=== PATIENT | female | born 1955 | race Caucasian/White ===

== ENCOUNTER 2019-01-13 01:23 | Inpatient (IN) | payer OTHER ==
[~2019-01-13] VITALS: Ht 162.6 cm; Wt 54.5 kg
[2019-01-13] VITALS (51 sets, daily range): BP systolic 120–160; BP diastolic 47–83
[2019-01-13] MEDS ORDERED: OCTREOTIDE 1,000 MCG in SODIUM CHLORIDE 0.9% 100 ML IV STA (01:28)
[2019-01-13] MEDS ORDERED: ONDANSETRON HCL 4MG/2ML INJ IV STA (01:28)
[2019-01-13] MEDS ORDERED: OCTREOTIDE ACETATE 50 MCG/ML 1ML IV STA (01:28)
[2019-01-13] MEDS ORDERED: SODIUM CHLORIDE 0.9% 1,000 ML IV ONE ×2 (01:28→03:28)
[2019-01-13] MEDS ORDERED: PANTOPRAZOLE SODIUM 40 MG/VIAL IV STA (01:28)
[2019-01-13] MEDS ORDERED: CEFTRIAXONE 1 G PREMIX 50 ML IV ONE (01:30)
[2019-01-13 02:02] LABS: BASOPHILS % 1.7 % (0.0-2.0); LYMPHOCYTES % 17.7 % (20.0-50.0); MEAN CORPUSCULAR HEMOGLOBIN 27.7 pg (28.0-32.0); MEAN CORPUSCULAR VOLUME 89.3 fL (81.0-99.0); MEAN PLATELET VOLUME 8.1 fl (7.4-10.4); MONOCYTES % 5.4 % (2.0-8.0); NEUTROPHILS % 75.2 % (40.0-76.0); PLATELET 90 x1000/uL (130-400); RED BLOOD CELL COUNT 2.06 mill/uL (4.2-5.4); RED CELL DISTRIBUTION WIDTH 17.2 % (11.6-14.6)
[2019-01-13 02:06] LABS: HEMATOCRIT. 18.4 % (36.0-48.0); HEMOGLOBIN. 5.7 g/dL (12.0-16.0)
[2019-01-13 02:07] LABS: CHLORIDE 114 mEq/L (98-107)
[2019-01-13 02:11] LABS: ETHANOL BLOOD 160 mg/dL
[2019-01-13 02:12] LABS: INR 1.9; PROTHROMBIN TIME 19.2 sec (9.1-11.1)
[2019-01-13] MEDS ORDERED: MIDAZOLAM HCL 50 MG in DEXTROSE 5% WATER 40 ML IV ONE (02:45)
[2019-01-13] MEDS ORDERED: SODIUM CHLORIDE 0.9% 10ML VIAL ONE (02:45)
[2019-01-13] MEDS ORDERED: MIDAZOLAM HCL 2 MG/2 ML VIAL IV ONE (02:45)
[2019-01-13] MEDS ORDERED: VECURONIUM BROMIDE 10 MG/VIAL IV ONE (02:45)
[2019-01-13] MEDS ORDERED: ONDANSETRON HCL 4MG/2ML INJ ONE (02:46)
[2019-01-13] MEDS ORDERED: MIDAZOLAM HCL 2 MG/2 ML VIAL ONE (02:49)
[2019-01-13 03:46] LABS: CLARITY URINE CLEAR (CLEAR); COLOR URINE YELLOW (YELLOW); KETONES URINE TRACE (NEGATIVE); LEUKOCYTE ESTERASE URINE NEGATIVE (NEGATIVE); NITRITE URINE NEGATIVE (NEGATIVE); OCCULT BLOOD URINE NEGATIVE (NEGATIVE); PH URINE 6.5 (4.5-8.0); PROTEIN URINE NEGATIVE (NEGATIVE); SPECIFIC GRAVITY URINE 1.011 (1.005-1.030); UROBILINOGEN URINE 0.2 E.U./dL (0.2-1.0)
[2019-01-13 04:52] LABS: *BARBITURATES SCREEN URINE NEGATIVE (NEGATIVE); *BENZODIAZEPINES SCREEN URINE NEGATIVE (NEGATIVE)
[2019-01-13 04:53] LABS: *AMPHETAMINES SCREEN URINE NEGATIVE (NEGATIVE); *COCAINE SCREEN URINE NEGATIVE (NEGATIVE); CANNABINOID URINE SCREEN NEGATIVE (NEGATIVE); METHADONE URINE SCREEN NEGATIVE (NEGATIVE); OPIATES URINE SCREEN NEGATIVE (NEGATIVE); PHENCYCLIDINE URINE SCREEN NEGATIVE (NEGATIVE)
[2019-01-13 05:19] LABS: BG BASE EXCESS -10.1 mmol/L (-2.0-2.0); BG CARBOXYHEMOGLOBIN 1.1 % (0.5-1.5); BG DEOXYHEMOGLOBIN 1.3 % (0.0-5.0); BG FRACTION INSPIRED OXYGEN 40; BG HCO3 ACT 15.9 mmol/L (22.0-26.0); BG METHEMOGLOBIN 0.4 % (0.0-1.5); BG OXYGEN SATURATION 98.7 % (92.0-98.5); BG OXYHEMOGLOBIN 97.2 % (94.0-97.0); BG PCO2 35.3 mmHg (35.0-45.0); BG PH 7.272 (7.350-7.450); BG PO2 166.5 mmHg (75.0-100.0); BG SAMPLE SITE RIGHT RADIAL; BG TIDAL VOLUME(mL) 450 mL; BG VENT MODE VENT - A/C; BG VENT RATE 12 set
[2019-01-13 06:13] LABS: MEAN CORPUSCULAR HEMOGLOBIN 29.5 pg (28.0-32.0); MEAN CORPUSCULAR VOLUME 89.3 fL (81.0-99.0); MEAN PLATELET VOLUME 7.8 fl (7.4-10.4); PLATELET 59 x1000/uL (130-400); RED BLOOD CELL COUNT 2.07 mill/uL (4.2-5.4); RED CELL DISTRIBUTION WIDTH 15.6 % (11.6-14.6)
[2019-01-13 06:18] LABS: HEMATOCRIT. 18.5 % (36.0-48.0); HEMOGLOBIN. 6.1 g/dL (12.0-16.0)
[2019-01-13 06:21] LABS: INR 1.7; PROTHROMBIN TIME 17.4 sec (9.1-11.1)
[2019-01-13] MEDS ORDERED: IPRATROPIUM/ALBUTEROL 0.5-3(2.5)MG/3ML NEB INH PRN (07:00)
[2019-01-13] MEDS ORDERED: HYDROMORPHONE HCL/PF 2MG/ML CPJ IV PRN (07:00)
[2019-01-13] MEDS ORDERED: ONDANSETRON HCL 4MG/2ML INJ IV PRN (07:00)
[2019-01-13] MEDS ORDERED: CLONIDINE 0.1MG TABLET PO PRN (07:00)
[2019-01-13] MEDS ORDERED: ACETAMINOPHEN 325MG TABLET PO PRN (07:00)
[2019-01-13] MEDS ORDERED: GUAIFENESIN 200MG/10ML SUGAR FREE UDC PO PRN (07:00)
[2019-01-13] MEDS ORDERED: HYDROCODONE/ACETAMINOPHEN 10/325MG TABLET PO PRN (07:00)
[2019-01-13] MEDS ORDERED: DOCUSATE SODIUM 100MG CAPSULE PO PRN (07:00)
[2019-01-13] MEDS ORDERED: MAGNESIUM/ALUMINUM HYDROXIDE/SIMETHICONE 30ML UDC PO PRN (07:00)
[2019-01-13 07:18] LABS: MEAN CORPUSCULAR HEMOGLOBIN 29.2 pg (28.0-32.0); RED BLOOD CELL COUNT 1.95 mill/uL (4.2-5.4); RED CELL DISTRIBUTION WIDTH 15.9 % (11.6-14.6)
[2019-01-13 07:22] LABS: HEMOGLOBIN 5.7 g/dL (12.0-16.0)
[2019-01-13 07:23] LABS: HEMATOCRIT 18.2 % (36.0-48.0); PLATELET 41 x1000/uL (130-400)
[2019-01-13] MEDS ORDERED: MIDAZOLAM HCL 50 MG in DEXTROSE 5% WATER 40 ML IV SCH (07:30)
[2019-01-13 08:23] LABS: NUCLEATED RED BLOOD CELLS 1 /100 WBC; PLATELET ESTIMATE DECREASED
[2019-01-13] MEDS: LORAZEPAM 2MG/ML CPJ IV PRN (10:34)
[2019-01-13 11:27] LABS: MEAN CORPUSCULAR HEMOGLOBIN 30.1 pg (28.0-32.0); RED BLOOD CELL COUNT 2.13 mill/uL (4.2-5.4); RED CELL DISTRIBUTION WIDTH 15.5 % (11.6-14.6)
[2019-01-13 11:39] LABS: HEMATOCRIT 19.4 % (36.0-48.0); HEMOGLOBIN 6.4 g/dL (12.0-16.0); PLATELET 31 x1000/uL (130-400)
[2019-01-13] MEDS: PROPOFOL 10MG/ML 100ML 100 ML IV PRN ×2 (13:16→19:02)
[2019-01-13] MEDS: SODIUM CHLORIDE 0.9% INJ 3ML FLUSH IVF SCH ×2 (14:00→22:04)
[2019-01-13] MEDS ORDERED: PHYTONADIONE 10 MG in DEXTROSE 5% WATER 50 ML IV SCH (14:30)
[2019-01-13 14:53] LABS: HEMATOCRIT 21.5 % (36.0-48.0); HEMOGLOBIN 7.3 g/dL (12.0-16.0)
[2019-01-13 15:02] LABS: INR 1.6; PROTHROMBIN TIME 16.4 sec (9.1-11.1)
[2019-01-13 15:10] LABS: CREATINE KINASE MB FRACTION 16.9 ng/mL (0.5-3.6)
[2019-01-13 15:15] LABS: BG BASE EXCESS -3.5 mmol/L (-2.0-2.0); BG DEOXYHEMOGLOBIN 3.7 % (0.0-5.0); BG FRACTION INSPIRED OXYGEN 40; BG HCO3 ACT 20.7 mmol/L (22.0-26.0); BG OXYGEN SATURATION 96.3 % (92.0-98.5); BG OXYHEMOGLOBIN 95.3 % (94.0-97.0); BG PCO2 33.5 mmHg (35.0-45.0); BG PH 7.409 (7.350-7.450); BG PO2 90.6 mmHg (75.0-100.0); BG SAMPLE SITE RIGHT RADIAL; BG TIDAL VOLUME(mL) 500 mL; BG VENT MODE VENT - A/C; BG VENT RATE 12 set
[2019-01-13 15:49] LABS: TOTAL IRON BINDING CAPACITY 250 ug/dL (250-450)
[2019-01-13] MEDS: FOLIC ACID 1 MG, THIAMINE HCL 100 MG, MVI, ADULT NO.1 10 ML in DEXTROSE 5% WATER 1,000 ML IV SCH ×4 (16:00)
[2019-01-13] MEDS: PANTOPRAZOLE SODIUM 40 MG/VIAL IV SCH ×2 (16:00→22:04)
[2019-01-13 20:04] LABS: HEMOGLOBIN 11.1 g/dL (12.0-16.0)
[2019-01-13] MEDS ORDERED: VANCOMYCIN 1 G PREMIX 200 ML IV NR (21:00)
[2019-01-14] VITALS (105 sets, daily range): BP systolic 119–161; BP diastolic 48–88
[2019-01-14 00:40] LABS: HEMATOCRIT 30.4 % (36.0-48.0); HEMOGLOBIN 10.3 g/dL (12.0-16.0)
[2019-01-14] MEDS: PROPOFOL 10MG/ML 100ML 100 ML IV PRN ×3 (03:49→18:09)
[2019-01-14] MEDS: VANCOMYCIN 750 MG PREMIX 150 ML IV SCH ×2 (05:42→18:09)
[2019-01-14] MEDS: SODIUM CHLORIDE 0.9% INJ 3ML FLUSH IVF SCH ×3 (05:42→22:46)
[2019-01-14 05:49] LABS: BASOPHILS % 0.6 % (0.0-2.0); EOSINOPHILS % 0.3 % (0.0-5.0); HEMATOCRIT. 27.4 % (36.0-48.0); HEMOGLOBIN. 9.6 g/dL (12.0-16.0); LYMPHOCYTES % 14.1 % (20.0-50.0); MEAN CORPUSCULAR HEMOGLOBIN 30.2 pg (28.0-32.0); MEAN CORPUSCULAR VOLUME 86.6 fL (81.0-99.0); MEAN PLATELET VOLUME 8.5 fl (7.4-10.4); MONOCYTES % 13.3 % (2.0-8.0); NEUTROPHILS % 71.7 % (40.0-76.0); RED BLOOD CELL COUNT 3.17 mill/uL (4.2-5.4)
[2019-01-14 05:51] LABS: CHLORIDE 114 mEq/L (98-107)
[2019-01-14 05:54] LABS: PLATELET 40 x1000/uL (130-400)
[2019-01-14 06:00] LABS: PHOSPHORUS 1.4 mg/dL (2.5-4.9)
[2019-01-14 06:01] LABS: LDL CHOLESTEROL 53 mg/dL (5-100)
[2019-01-14 06:03] LABS: T4 FREE 0.82 ng/dL (0.76-1.46)
[2019-01-14 06:04] LABS: HDL CHOLESTEROL 55 mg/dL (40-59)
[2019-01-14 06:17] LABS: INR 1.5
[2019-01-14 07:54] LABS: BG BASE EXCESS 2.9 mmol/L (-2.0-2.0); BG CARBOXYHEMOGLOBIN 0.5 % (0.5-1.5); BG DEOXYHEMOGLOBIN 1.8 % (0.0-5.0); BG HCO3 ACT 25.1 mmol/L (22.0-26.0); BG METHEMOGLOBIN 0.3 % (0.0-1.5); BG OXYGEN SATURATION 98.2 % (92.0-98.5); BG OXYHEMOGLOBIN 97.4 % (94.0-97.0); BG PCO2 29.3 mmHg (35.0-45.0); BG PO2 120.9 mmHg (75.0-100.0); BG SAMPLE SITE RIGHT RADIAL; BG TIDAL VOLUME(mL) 500 mL; BG VENT MODE VENT - A/C; BG VENT RATE 12 set
[2019-01-14] MEDS ORDERED: METOCLOPRAMIDE HCL 10MG/2ML VIAL IV SCH ×2 (08:30→14:00)
[2019-01-14] MEDS ORDERED: MAGNESIUM OXIDE 400MG TABLET NG SCH ×2 (08:30→14:00)
[2019-01-14] MEDS ORDERED: POTASSIUM-SODIUM PHOSPHATE POWDER PACKET NG SCH ×2 (08:30→14:00)
[2019-01-14] MEDS ORDERED: POTASSIUM CHLORIDE 20MEQ/PACKET NG SCH ×2 (08:30→14:00)
[2019-01-14] MEDS: PANTOPRAZOLE SODIUM 40 MG/VIAL IV SCH ×2 (08:59→20:25)
[2019-01-14] MEDS ORDERED: OCTREOTIDE 1,000 MCG in SODIUM CHLORIDE 0.9% 98 ML IV PRN (12:15)
[2019-01-14] MEDS ORDERED: OCTREOTIDE 1000MCG in SODIUM CHLORIDE 0.9% 100ML IV PRN (12:15)
[2019-01-14 13:32] LABS: HEMATOCRIT 27.1 % (36.0-48.0); HEMOGLOBIN 9.5 g/dL (12.0-16.0)
[2019-01-14] MEDS: FOLIC ACID 1 MG, THIAMINE HCL 100 MG, MVI, ADULT NO.1 10 ML in DEXTROSE 5% WATER 1,000 ML IV SCH ×4 (14:14)
[2019-01-14] MEDS ORDERED: MAGNESIUM 1 G PREMIX 100 ML IV ONE (15:00)
[2019-01-14] MEDS ORDERED: POTASSIUM PHOS,M-BASIC-D-BASIC 15 MMOL in DEXTROSE 5% WATER 250 ML IV ONE (15:00)
[2019-01-14 21:31] LABS: HEMATOCRIT. 26.7 % (36.0-48.0); HEMOGLOBIN. 9.3 g/dL (12.0-16.0); MEAN CORPUSCULAR HEMOGLOBIN 29.6 pg (28.0-32.0); MEAN CORPUSCULAR VOLUME 85.5 fL (81.0-99.0); MEAN PLATELET VOLUME 8.6 fl (7.4-10.4); RED BLOOD CELL COUNT 3.13 mill/uL (4.2-5.4); RED CELL DISTRIBUTION WIDTH 15.6 % (11.6-14.6)
[2019-01-14 21:38] LABS: PHOSPHORUS 1.7 mg/dL (2.5-4.9)
[2019-01-14 21:50] LABS: PLATELET 41 x1000/uL (130-400)
[2019-01-14] MEDS ORDERED: KCL 20MEQ/100ML PREMIX 100 ML IV ONE (22:30)
[2019-01-14 22:34] LABS: NUCLEATED RED BLOOD CELLS 1 /100 WBC; PLATELET ESTIMATE MARKEDLY DECREASED
[2019-01-15] VITALS (91 sets, daily range): BP systolic 128–169; BP diastolic 59–93
[2019-01-15] MEDS ORDERED: POTASSIUM CHLORIDE INJ 40 MEQ in DEXT 5% WATER 250 ML IV NR ×2
[2019-01-15] MEDS: PROPOFOL 10MG/ML 100ML 100 ML IV PRN ×3 (01:23→18:58)
[2019-01-15] MEDS ORDERED: POTASSIUM PHOS,M-BASIC-D-BASIC 20 MMOL in DEXT 5% WATER 243.3333 ML IV NR (04:00)
[2019-01-15] MEDS: SODIUM CHLORIDE 0.9% INJ 3ML FLUSH IVF SCH ×3 (05:09→21:19)
[2019-01-15] MEDS: VANCOMYCIN 750 MG PREMIX 150 ML IV SCH (05:09)
[2019-01-15 08:08] LABS: BG BASE EXCESS 6.3 mmol/L (-2.0-2.0); BG CARBOXYHEMOGLOBIN 0.3 % (0.5-1.5); BG DEOXYHEMOGLOBIN 2.9 % (0.0-5.0); BG FRACTION INSPIRED OXYGEN 40; BG HCO3 ACT 28.3 mmol/L (22.0-26.0); BG METHEMOGLOBIN 0.4 % (0.0-1.5); BG OXYGEN SATURATION 97.1 % (92.0-98.5); BG OXYHEMOGLOBIN 96.4 % (94.0-97.0); BG PCO2 30.9 mmHg (35.0-45.0); BG PH 7.579 (7.350-7.450); BG PO2 98.2 mmHg (75.0-100.0); BG SAMPLE SITE RIGHT RADIAL; BG TIDAL VOLUME(mL) 500 mL; BG TOTAL HEMOGLOBIN 9.6 g/dL (12.0-18.0); BG VENT MODE VENT - A/C; BG VENT RATE 12 set
[2019-01-15] MEDS: PANTOPRAZOLE SODIUM 40 MG/VIAL IV SCH ×2 (08:57→21:19)
[2019-01-15 10:04] LABS: INR 1.4; PROTHROMBIN TIME 14.3 sec (9.1-11.1)
[2019-01-15 10:07] LABS: EOSINOPHILS % 0.7 % (0.0-5.0); HEMATOCRIT. 26.6 % (36.0-48.0); HEMOGLOBIN. 9.1 g/dL (12.0-16.0); LYMPHOCYTES % 15.7 % (20.0-50.0); MEAN CORPUSCULAR HEMOGLOBIN 29.3 pg (28.0-32.0); MEAN CORPUSCULAR VOLUME 85.9 fL (81.0-99.0); MEAN PLATELET VOLUME 9.2 fl (7.4-10.4); NEUTROPHILS % 69.6 % (40.0-76.0); RED BLOOD CELL COUNT 3.09 mill/uL (4.2-5.4)
[2019-01-15 10:20] LABS: CHLORIDE 113 mEq/L (98-107)
[2019-01-15 10:26] LABS: PHOSPHORUS 2.6 mg/dL (2.5-4.9)
[2019-01-15] MEDS ORDERED: DEXT 5% IV SCH (13:15)
[2019-01-15] MEDS ORDERED: MAGNESIUM 4 G PREMIX 100 ML IV ONE (13:15)
[2019-01-15] MEDS ORDERED: KCL IV SCH (13:15)
[2019-01-15] MEDS ORDERED: CALCIUM GLUCONATE 1,000 MG in DEXT 5% WATER 90 ML IV ONE (13:15)
[2019-01-15] MEDS ORDERED: WATER IV SCH (13:15)
[2019-01-15] MEDS: FOLIC ACID 1 MG, THIAMINE HCL 100 MG, MVI, ADULT NO.1 10 ML in DEXTROSE 5% WATER 1,000 ML IV SCH ×4 (14:44)
[2019-01-15] MEDS: PHYTONADIONE 10 MG in DEXTROSE 5% WATER 49 ML IV SCH (14:59)
[2019-01-15] MEDS ORDERED: [UNRECOGNIZED DRUG - OTHER] IV NR (15:00)
[2019-01-15] MEDS ORDERED: CALCIUM GLUCONATE IV NR (15:00)
[2019-01-15] MEDS ORDERED: MAGNESIUM SULFATE IV NR (15:00)
[2019-01-15] MEDS ORDERED: POTASSIUM CHLORIDE IV NR (15:00)
[2019-01-15] MEDS: VANCOMYCIN 1 G PREMIX 200 ML IV SCH (19:00)
[2019-01-15 20:55] LABS: PHOSPHORUS 2.5 mg/dL (2.5-4.9)
[2019-01-15 21:02] LABS: HEMATOCRIT 27.8 % (36.0-48.0); HEMOGLOBIN 9.6 g/dL (12.0-16.0)
[2019-01-15] MEDS ORDERED: WATER IV ONE (23:45)
[2019-01-15] MEDS ORDERED: DEXT 5% IV ONE (23:45)
[2019-01-15] MEDS ORDERED: KCL IV ONE (23:45)
[2019-01-16] VITALS (103 sets, daily range): BP systolic 121–175; BP diastolic 57–98
[2019-01-16] MEDS: PROPOFOL 10MG/ML 100ML 100 ML IV PRN ×2 (01:49→06:28)
[2019-01-16] MEDS ORDERED: POTASSIUM CHLORIDE INJ 40 MEQ in DEXT 5% WATER 250 ML IV NR (02:00)
[2019-01-16] MEDS: HYDRALAZINE 20MG/ML VIAL IV PRN ×2 (02:23→20:49)
[2019-01-16] MEDS: VANCOMYCIN 1 G PREMIX 200 ML IV SCH ×2 (05:16→17:46)
[2019-01-16] MEDS: SODIUM CHLORIDE 0.9% INJ 3ML FLUSH IVF SCH ×3 (05:17→20:48)
[2019-01-16 05:48] LABS: HEMATOCRIT. 27.9 % (36.0-48.0); HEMOGLOBIN. 9.6 g/dL (12.0-16.0); MEAN CORPUSCULAR HEMOGLOBIN 30.1 pg (28.0-32.0); MEAN CORPUSCULAR VOLUME 87.3 fL (81.0-99.0); MEAN PLATELET VOLUME 9.5 fl (7.4-10.4); RED BLOOD CELL COUNT 3.19 mill/uL (4.2-5.4); RED CELL DISTRIBUTION WIDTH 16.1 % (11.6-14.6)
[2019-01-16 05:56] LABS: INR 1.3; PROTHROMBIN TIME 13.1 sec (9.1-11.1)
[2019-01-16 06:03] LABS: CHLORIDE 110 mEq/L (98-107)
[2019-01-16 06:11] LABS: PHOSPHORUS 2.2 mg/dL (2.5-4.9)
[2019-01-16 06:30] LABS: PLATELET 39 x1000/uL (130-400)
[2019-01-16 07:17] LABS: PLATELET ESTIMATE MARKEDLY DECREASED
[2019-01-16 08:06] LABS: BG BASE EXCESS 5.2 mmol/L (-2.0-2.0); BG CARBOXYHEMOGLOBIN 0.1 % (0.5-1.5); BG DEOXYHEMOGLOBIN 1.6 % (0.0-5.0); BG FRACTION INSPIRED OXYGEN 40; BG HCO3 ACT 28.6 mmol/L (22.0-26.0); BG METHEMOGLOBIN 0.3 % (0.0-1.5); BG OXYGEN SATURATION 98.4 % (92.0-98.5); BG PCO2 37.3 mmHg (35.0-45.0); BG PH 7.502 (7.350-7.450); BG PO2 128.4 mmHg (75.0-100.0); BG SAMPLE SITE RIGHT RADIAL; BG TIDAL VOLUME(mL) 500 mL; BG VENT MODE VENT - A/C; BG VENT RATE 10 set
[2019-01-16] MEDS: PANTOPRAZOLE SODIUM 40 MG/VIAL IV SCH ×2 (09:01→20:48)
[2019-01-16 10:47] LABS: PLATELET 42 x1000/uL (130-400)
[2019-01-16] MEDS: LORAZEPAM 2MG/ML CPJ IV PRN (11:29)
[2019-01-16] MEDS ORDERED: POTASSIUM PHOS,M-BASIC-D-BASIC 15 MMOL in DEXT 5% WATER 245 ML IV NR (12:30)
[2019-01-16] MEDS: CEFTRIAXONE 1,000 MG in DEXTROSE 5% WATER 50 ML IV SCH (15:00)
[2019-01-16] MEDS: FOLIC ACID 1 MG, THIAMINE HCL 100 MG, MVI, ADULT NO.1 10 ML in DEXTROSE 5% WATER 1,000 ML IV SCH ×4 (16:28)
[2019-01-16] MEDS: PHYTONADIONE 10 MG in DEXTROSE 5% WATER 49 ML IV SCH (16:28)
[2019-01-16 23:09] LABS: HEMATOCRIT 26.2 % (36.0-48.0); HEMOGLOBIN 8.9 g/dL (12.0-16.0); MEAN CORPUSCULAR VOLUME 88.3 fL (81.0-99.0); RED BLOOD CELL COUNT 2.97 mill/uL (4.2-5.4); RED CELL DISTRIBUTION WIDTH 15.8 % (11.6-14.6)
[2019-01-16 23:11] LABS: PLATELET 35 x1000/uL (130-400)
[2019-01-17] VITALS (50 sets, daily range): BP systolic 124–197; BP diastolic 57–102
[2019-01-17] MEDS: SODIUM CHLORIDE 0.9% INJ 3ML FLUSH IVF SCH ×3 (05:41→22:11)
[2019-01-17] MEDS: VANCOMYCIN 1 G PREMIX 200 ML IV SCH (05:41)
[2019-01-17 06:59] LABS: CHLORIDE 107 mEq/L (98-107)
[2019-01-17 07:08] LABS: HEMATOCRIT. 27.4 % (36.0-48.0); MEAN CORPUSCULAR HEMOGLOBIN 29.2 pg (28.0-32.0); MEAN CORPUSCULAR VOLUME 88.8 fL (81.0-99.0); MEAN PLATELET VOLUME 10.1 fl (7.4-10.4); RED BLOOD CELL COUNT 3.09 mill/uL (4.2-5.4); RED CELL DISTRIBUTION WIDTH 15.8 % (11.6-14.6)
[2019-01-17 07:15] LABS: VANCOMYCIN TROUGH 11.3 ug/mL (5.0-10.0)
[2019-01-17 07:20] LABS: PLATELET 44 x1000/uL (130-400)
[2019-01-17] MEDS ORDERED: POTASSIUM CHLORIDE INJ 40 MEQ in DEXT 5% WATER 250 ML IV SCH (09:00)
[2019-01-17] MEDS: PANTOPRAZOLE SODIUM 40 MG/VIAL IV SCH ×2 (09:26→21:17)
[2019-01-17 09:47] LABS: BG BASE EXCESS 3.5 mmol/L (-2.0-2.0); BG CARBOXYHEMOGLOBIN 0.1 % (0.5-1.5); BG CPAP (cmH2O) 0 cm(H2O); BG DEOXYHEMOGLOBIN 4.6 % (0.0-5.0); BG HCO3 ACT 27.3 mmol/L (22.0-26.0); BG OXYGEN SATURATION 95.4 % (92.0-98.5); BG OXYHEMOGLOBIN 95.3 % (94.0-97.0); BG PCO2 38.1 mmHg (35.0-45.0); BG PH 7.473 (7.350-7.450); BG PO2 80.1 mmHg (75.0-100.0); BG SAMPLE SITE RIGHT RADIAL; BG TOTAL HEMOGLOBIN 9.6 g/dL (12.0-18.0); BG VENT MODE VENT - CPAP
[2019-01-17 11:48] LABS: PLATELET ESTIMATE DECREASED
[2019-01-17] MEDS: VANCOMYCIN 750 MG PREMIX 150 ML IV SCH ×2 (13:43→21:18)
[2019-01-17] MEDS: FOLIC ACID 1 MG, THIAMINE HCL 100 MG, MVI, ADULT NO.1 10 ML in DEXTROSE 5% WATER 1,000 ML IV SCH ×4 (13:43)
[2019-01-17] MEDS: CEFTRIAXONE 1,000 MG in DEXTROSE 5% WATER 50 ML IV SCH (14:38)
[2019-01-17 16:27] LABS: PHOSPHORUS 2.3 mg/dL (2.5-4.9)
[2019-01-17] MEDS ORDERED: POTASSIUM CHLORIDE INJ 40 MEQ in DEXT 5% WATER 500 ML IV ONE (17:30)
[2019-01-17] MEDS ORDERED: POTASSIUM CHLORIDE INJ 40 MEQ in DEXT 5% WATER 250 ML IV NR (18:30)
[2019-01-18] VITALS (45 sets, daily range): BP systolic 123–183; BP diastolic 63–96
[2019-01-18] MEDS: SODIUM CHLORIDE 0.9% INJ 3ML FLUSH IVF SCH ×3 (06:08→22:44)
[2019-01-18] MEDS: VANCOMYCIN 750 MG PREMIX 150 ML IV SCH ×2 (06:08→14:07)
[2019-01-18 06:17] LABS: HEMATOCRIT. 27.1 % (36.0-48.0); HEMOGLOBIN. 9.1 g/dL (12.0-16.0); MEAN CORPUSCULAR HEMOGLOBIN 29.8 pg (28.0-32.0); MEAN CORPUSCULAR VOLUME 89.3 fL (81.0-99.0); MEAN PLATELET VOLUME 10.6 fl (7.4-10.4); RED BLOOD CELL COUNT 3.04 mill/uL (4.2-5.4); RED CELL DISTRIBUTION WIDTH 15.6 % (11.6-14.6)
[2019-01-18 06:19] LABS: CHLORIDE 109 mEq/L (98-107)
[2019-01-18 06:58] LABS: PLATELET 34 x1000/uL (130-400)
[2019-01-18 10:25] LABS: PLATELET ESTIMATE MARKEDLY DECREASED
[2019-01-18] MEDS: PANTOPRAZOLE SODIUM 40 MG/VIAL IV SCH ×2 (10:33→21:40)
[2019-01-18] MEDS: AMLODIPINE 2.5MG TABLET PO SCH ×2 (10:43→20:19)
[2019-01-18] MEDS: PROPRANOLOL HCL 10MG TABLET PO SCH ×2 (12:00→21:40)
[2019-01-18] MEDS ORDERED: KCL 20MEQ/100ML PREMIX 100 ML IV NR ×2 (12:00→18:00)
[2019-01-18] MEDS: CEFTRIAXONE 1,000 MG in DEXTROSE 5% WATER 50 ML IV SCH (14:07)
[2019-01-18] MEDS: FOLIC ACID 1 MG, THIAMINE HCL 100 MG, MVI, ADULT NO.1 10 ML in DEXTROSE 5% WATER 1,000 ML IV SCH ×4 (15:35)
[2019-01-19] VITALS (42 sets, daily range): BP systolic 98–170; BP diastolic 46–113
[2019-01-19] MEDS: LORAZEPAM 2MG/ML CPJ IV PRN (01:19)
[2019-01-19] MEDS: DIPHENHYDRAMINE 50MG/ML VIAL IV PRN (01:20)
[2019-01-19 05:11] LABS: CHLORIDE 109 mEq/L (98-107)
[2019-01-19] MEDS: SODIUM CHLORIDE 0.9% INJ 3ML FLUSH IVF SCH ×3 (06:48→21:21)
[2019-01-19] MEDS ORDERED: POTASSIUM CHLORIDE 20MEQ/PACKET PO NR (07:15)
[2019-01-19] MEDS: PANTOPRAZOLE SODIUM 40 MG/VIAL IV SCH (08:28)
[2019-01-19] MEDS: PROPRANOLOL HCL 10MG TABLET PO SCH ×2 (08:29→21:15)
[2019-01-19] MEDS: AMLODIPINE 2.5MG TABLET PO SCH ×2 (08:29→16:44)
[2019-01-19] MEDS: RIFAXIMIN 550 MG TABLET PO SCH ×2 (11:27→21:14)
[2019-01-19] MEDS: LACTULOSE 20G/30ML UDC PO SCH ×2 (13:52→21:21)
[2019-01-19] MEDS: CEFTRIAXONE 1,000 MG in DEXTROSE 5% WATER 50 ML IV SCH (13:52)
[2019-01-19] MEDS: FOLIC ACID 1 MG, THIAMINE HCL 100 MG, MVI, ADULT NO.1 10 ML in DEXTROSE 5% WATER 1,000 ML IV SCH ×4 (16:25)
[2019-01-20] VITALS (45 sets, daily range): BP systolic 118–167; BP diastolic 55–155
[2019-01-20] MEDS: PANTOPRAZOLE SODIUM 40 MG/VIAL IV SCH ×3 (03:47→21:35)
[2019-01-20] MEDS: LACTULOSE 20G/30ML UDC PO SCH ×3 (05:58→21:35)
[2019-01-20] MEDS: SODIUM CHLORIDE 0.9% INJ 3ML FLUSH IVF SCH ×3 (05:58→21:36)
[2019-01-20] MEDS: RIFAXIMIN 550 MG TABLET PO SCH ×2 (08:37→21:35)
[2019-01-20] MEDS: AMLODIPINE 2.5MG TABLET PO SCH ×2 (08:37→17:59)
[2019-01-20] MEDS: PROPRANOLOL HCL 10MG TABLET PO SCH ×2 (08:37→21:35)
[2019-01-20 10:08] LABS: HEMATOCRIT. 30.7 % (36.0-48.0); HEMOGLOBIN. 10.2 g/dL (12.0-16.0); MEAN CORPUSCULAR HEMOGLOBIN 29.8 pg (28.0-32.0); MEAN CORPUSCULAR VOLUME 89.7 fL (81.0-99.0); MEAN PLATELET VOLUME 9.7 fl (7.4-10.4); PLATELET 69 x1000/uL (130-400); RED BLOOD CELL COUNT 3.42 mill/uL (4.2-5.4); RED CELL DISTRIBUTION WIDTH 16.6 % (11.6-14.6)
[2019-01-20 10:19] LABS: CHLORIDE 106 mEq/L (98-107)
[2019-01-20] MEDS ORDERED: POTASSIUM CHLORIDE 20MEQ/PACKET PO NR (10:30)
[2019-01-20 10:43] LABS: PLATELET ESTIMATE DECREASED
[2019-01-20] MEDS: LOSARTAN POTASSIUM 25 MG TABLET PO SCH ×2 (10:46→21:35)
[2019-01-20] MEDS ORDERED: MAGNESIUM 4 G PREMIX 100 ML IV NR (14:00)
[2019-01-20] MEDS: FOLIC ACID 1 MG, THIAMINE HCL 100 MG, MVI, ADULT NO.1 10 ML in DEXTROSE 5% WATER 1,000 ML IV SCH ×4 (14:56)
[2019-01-21] VITALS (31 sets, daily range): BP systolic 120–179; BP diastolic 33–93
[2019-01-21] MEDS: LORAZEPAM 2MG/ML CPJ IV PRN ×2 (01:40→05:56)
[2019-01-21] MEDS: DIPHENHYDRAMINE 50MG/ML VIAL IV PRN ×2 (01:40→05:56)
[2019-01-21 05:54] LABS: HEMATOCRIT. 30.5 % (36.0-48.0); HEMOGLOBIN. 10.2 g/dL (12.0-16.0); MEAN CORPUSCULAR HEMOGLOBIN 29.8 pg (28.0-32.0); MEAN CORPUSCULAR VOLUME 89.6 fL (81.0-99.0); MEAN PLATELET VOLUME 9.7 fl (7.4-10.4); PLATELET 66 x1000/uL (130-400); RED BLOOD CELL COUNT 3.41 mill/uL (4.2-5.4); RED CELL DISTRIBUTION WIDTH 16.9 % (11.6-14.6)
[2019-01-21] MEDS: LACTULOSE 20G/30ML UDC PO SCH ×3 (05:56→14:37)
[2019-01-21 06:09] LABS: CHLORIDE 106 mEq/L (98-107)
[2019-01-21] MEDS: SODIUM CHLORIDE 0.9% INJ 3ML FLUSH IVF SCH ×2 (06:29→14:00)
[2019-01-21] MEDS ORDERED: POTASSIUM CHLORIDE 20MEQ/PACKET PO NR (09:00)
[2019-01-21] MEDS: LOSARTAN POTASSIUM 25 MG TABLET PO SCH (09:15)
[2019-01-21] MEDS: PANTOPRAZOLE SODIUM 40 MG/VIAL IV SCH (09:15)
[2019-01-21] MEDS: PROPRANOLOL HCL 10MG TABLET PO SCH (09:15)
[2019-01-21] MEDS: AMLODIPINE 2.5MG TABLET PO SCH (09:16)
[2019-01-21] MEDS: RIFAXIMIN 550 MG TABLET PO SCH (09:16)
[2019-01-21 16:17] LABS: PLATELET ESTIMATE DECREASED
== END 2019-01-21 15:20 | disposition short-term general hospital (02) | DRG 279 ==
LOC: ER 01:23 → CVICU 03:27 → EDBEDREQTM 03:31 → EDBEDREQ 03:31 → ENRESERV 11:59 → UNDOADMIN 12:42 → CVICU 12:42
PROVIDERS: ADMIT Internal Medicine; ATTEND Internal Medicine
PROC: 5A1955Z Respiratory Ventilation, Greater than 96 Consecutive Hours (ICD-10-PCS; principal; 2019-01-13)
PROC: 30233K1 Transfusion of Nonautologous Frozen Plasma into Peripheral Vein, Percutaneous Approach (ICD-10-PCS; 2019-01-13)
PROC: 30233N1 Transfusion of Nonautologous Red Blood Cells into Peripheral Vein, Percutaneous Approach (ICD-10-PCS; 2019-01-13)
PROC: 30233R1 Transfusion of Nonautologous Platelets into Peripheral Vein, Percutaneous Approach (ICD-10-PCS; 2019-01-13)
PROC: 02HV33Z Insertion of Infusion Device into Superior Vena Cava, Percutaneous Approach (ICD-10-PCS; 2019-01-13)
PROC: B548ZZA Ultrasonography of Superior Vena Cava, Guidance (ICD-10-PCS; 2019-01-13)
PROC: 0BH17EZ Insertion of Endotracheal Airway into Trachea, Via Natural or Artificial Opening (ICD-10-PCS; 2019-01-13)
PROC: 06L38CZ Occlusion of Esophageal Vein with Extraluminal Device, Via Natural or Artificial Opening Endoscopic (ICD-10-PCS; 2019-01-19)
DX: K72.00 Acute and subacute hepatic failure without coma (principal); J96.00 Acute respiratory failure, unspecified whether with hypoxia or hypercapnia; I21.4 Non-ST elevation (NSTEMI) myocardial infarction; R57.8 Other shock; D61.818 Other pancytopenia; G93.41 Metabolic encephalopathy; I85.10 Secondary esophageal varices without bleeding; E46 Unspecified protein-calorie malnutrition; R65.10 Systemic inflammatory response syndrome (SIRS) of non-infectious origin without acute organ dysfunction; E87.0 Hyperosmolality and hypernatremia; K76.6 Portal hypertension; K92.2 Gastrointestinal hemorrhage, unspecified; D50.0 Iron deficiency anemia secondary to blood loss (chronic); I10 Essential (primary) hypertension; F32.9 Major depressive disorder, single episode, unspecified; E86.1 Hypovolemia; E87.6 Hypokalemia; E83.42 Hypomagnesemia; K70.30 Alcoholic cirrhosis of liver without ascites; B95.7 Other staphylococcus as the cause of diseases classified elsewhere; D63.8 Anemia in other chronic diseases classified elsewhere; D68.9 Coagulation defect, unspecified; F10.20 Alcohol dependence, uncomplicated; I25.10 Atherosclerotic heart disease of native coronary artery without angina pectoris; K20.9 Esophagitis, unspecified; K31.89 Other diseases of stomach and duodenum; Y90.6 Blood alcohol level of 120-199 mg/100 ml; Z78.1 Physical restraint status; Z68.20 Body mass index [BMI] 20.0-20.9, adult
CPT/HCPCS: 31500; 36415; 36430; 36569; 36600; 71045; 76937; 80048; 80061; 80202; 80305; 80320; 82140; 82375; 82550; 82553; 82728; 82805; 82962; 83036; 83540; 83550; 83605; 83735; 83880; 84100; 84132; 84439; 84443; 84478; 84484; 85014; 85018; 85027; 85379; 85384; 86850; 86900; 86920; 86927; 86945; 87070; 92610; 93005; 93306; 93970; 94002; 94003; 96365; 96366; 96375; 97162; 97166; 99291; C1725; C9113; J0360; J0610; J0696; J1200; J2060; J2250; J2354; J2405; J2704; J2765; J3370; J3411; J3430; J3475; J3480; J3490; J7030; J7040; J7050; J7060; J7070; J7620; P9016; P9017; P9034; A4315; G0480